=== PATIENT | male | born 1950 | race African-American/Black ===

== ENCOUNTER 2017-06-18 12:47 | Emergency (ER) | payer MEDICARE, MEDICAID ==
[~2017-06-18 12:47] MED LIST: AMLO5TAB2 PO; ATEN100T PO; GABA600T PO; LISI40TA PO; METF500T PO
[2017-06-18 13:01] VITALS: BP 134/68; PULSE 101; RESP 16; O2SAT 98
--- NOTE | 2017-06-18 14:23 | RADRPT ---
EXAM DATE/TIME: 06/18/2017 13:54 [facility] COMPARISON: CT CERVICAL SPINE W/O CONTRAST, August 22, 2013, 15:51. INDICATIONS : Patient fell, complains of neck pain RADIATION DOSE: 33.44 CTDIvol (mGy) MEDICAL HISTORY : Hypertension. SURGICAL HISTORY : Cervical fusion ENCOUNTER: Initial ACUITY: 1 day PAIN SCALE: 6/10 LOCATION: neck TECHNIQUE: Volumetric scanning of the cervical spine was performed. Multiplanar reconstructions in the sagittal, coronal and oblique axial planes were performed. Using automated exposure control and adjustment o f the mA and/or kV according to patient size, radiation dose was kept as low as reasonably achievable to obtain optimal diagnostic quality images. DICOM format image data is available electronically f or review and comparison. FINDINGS: VERTEBRAE: Normal vertebral body height. There is hardware anteriorly extending from C3-T1. There is a posterior cerclage wire around the posterior elements at C3-C5. Osseous fusion is present between the vertebra l bodies at C3-C7. There has been posterior element fusion at C3-C5. The hardware demonstrates no fin ding to indicate failure or loosening. ALIGNMENT: There is no anterolisthesis or retrolisthesis. The craniocervical junction demonstrates no abnormality. There is joint space narrowing and osteophyt es at the anterior atlantodens interval. C2-C3: There is partial osseous fusion between the vertebral bodies and posterior elements. Minimal posterio r disc osteophyte complex is present. No spinal canal stenosis or neural foraminal narrowing is appre ciated. C3-C4: There is osseous fusion. Posterior osteophytic ridging is present with small uncovertebral osteophyte s. There is mild neural foraminal narrowing bilaterally, right greater than left. No spinal canal darius nosis is appreciated. C4-C5: There is fusion between the vertebral bodies. Uncovertebral osteophytes are present mildly narrowing the spinal canal. There is no spinal canal stenosis appreciated. C5-C6: No canal stenosis or neural foraminal stenosis is identified. C6-C7: There is no spinal canal stenosis. Bilateral uncovertebral osteophytes are present causing mild to mo derate neural foraminal narrowing. C7-T1: There is facet arthrosis bilaterally no definite spinal canal stenosis or neural foraminal narrowing is visualized. Visualized paraspinous structures demonstrate no acute finding. CONCLUSION: Stable examination of the cervical spine without an acute finding identified. There is stable hardwar e and postsurgical changes extending from C3 through T1. Frederick Enrique MD on June 18, 2017 at 14:09 Board Certified Radiologist. This report was verified electronically.
--- NOTE | 2017-06-18 16:43 | PD ---
HPI Chief Complaint: Musculoskeletal Complaint Time Seen by Provider: 16:31 Travel History International Travel<30 days: No Contact w/Intl Traveler<30days: No Traveled to known affect area: No History of Present Illness HPI 67-year-old male presents to emergency department complaining of neck, low back , and elbow pain after a mechanical fall that occurred yesterday morning. States he fell forward onto his knees and elbows. He presented today because his back pain is worsening. States that his upper neck region is tender and has mild pain with range of motion. Denies numbness, tingling, or weakness of upper extremities. Lower back in the lumbar region pain increased with movement and decreases with rest. States that he has occasional sharp pain radiating to his right knee. Describes the pain as mild. Patient also planning of mild left elbow pain that increases with movement and touch to the lateral condyle. Patient denies fever, chills, IV drug use, loss of bowel or bladder function, saddle anesthesia, personal history of cancer. Patient denies significant medical history. PFSH Past Medical History Arthritis: Yes Blood Disorders: No Anxiety: No Depression: Yes Heart Rhythm Problems: No Cancer: No Cardiovascular Problems: Yes (HPT) High Cholesterol: Yes Chemotherapy: No Chest Pain: No Congestive Heart Failure: No Cerebrovascular Accident: No Diabetes: Yes Diminished Hearing: No Endocrine: Yes Genitourinary: No Headaches: No Hypertension: Yes Immune Disorder: No Musculoskeletal: Yes Neurologic: Yes (BILAT HANDS- CONTRACTURES) Psychiatric: No Reproductive: No Respiratory: No Migraines: No Myocardial Infarction: No Radiation Therapy: No Seizures: No Thyroid Disease: No Past Surgical History Abdominal Surgery: No AICD: No Arteriovenous Shunt: No Cardiac Surgery: No Ear Surgery: No Endocrine Surgery: No Eye Surgery: No Genitourinary Surgery: No Insulin Pump: No Joint Replacement: Yes (LEFT KNEE REPLACEMENT) Neurologic Surgery: Yes (CERVICAL FUSION X 2 . LAST ON ON 11/15/09) Oral Surgery: No Pacemaker: No Thoracic Surgery: No Social History Alcohol Use: No Tobacco Use: Yes (2 CIGARS A DAY) Substance Use: No Allergies-Medications (Allergen,Severity, Reaction): Coded Allergies: enoxaparin (Verified Allergy, Severe, RASH, 04/07/17) oxycodone (Verified Allergy, Severe, Rash, 04/07/17) amitriptyline (Verified Allergy, Unknown, 04/07/17) Reported Meds & Prescriptions Reported Meds & Active Scripts Active Reported Metformin (Metformin HCl) 500 Mg Tab 500 Mg PO DAILY With a meal Amlodipine (Amlodipine Besylate) 5 Mg Tab 5 Mg PO DAILY Lisinopril 40 Mg Tab 40 Mg PO DAILY Atenolol 100 Mg Tab 100 Mg PO DAILY Gabapentin 600 Mg Tab 600 Mg PO TID Review of Systems Except as stated in HPI: all other systems reviewed are Neg Physical Exam Narrative GENERAL: Well-developed well-nourished, pleasant SKIN: Focused skin assessment warm/dry. HEAD: Atraumatic. Normocephalic. EYES: Pupils equal and round. No scleral icterus. No injection or drainage. ENT: No nasal bleeding or discharge. Mucous membranes pink and moist. NECK: Trachea midline. No JVD. TTP to midline cervical spine with accompanying muscle spasms. CARDIOVASCULAR: Regular rate and rhythm. No murmur appreciated. RESPIRATORY: No accessory muscle use. Clear to auscultation. Breath sounds equal bilaterally. GASTROINTESTINAL: Abdomen soft, non-tender, nondistended. Hepatic and splenic margins not palpable. Right elbow and bilateral knees nontender to palpation, full range of motion. left elbow- TTP to lateral epicondyle, abrasion to over tender point, no crepitus or deformities noted. BACK: No CVA tenderness. No rash. Mild point tenderness on palpation of the spine, approximately L3 with accompanying muscle spasms MUSCULOSKELETAL: No obvious deformities. No clubbing. No cyanosis. No edema. NEUROLOGICAL: Awake and alert. No obvious cranial nerve deficits. Motor grossly within normal limits for patient. Normal speech. PSYCHIATRIC: Appropriate mood and affect; insight and judgment normal. Data Data Last Documented VS Vital Signs Date Time Temp Pulse Resp B/P (MAP) Pulse Ox O2 Delivery O2 Flow Rate FiO2 06/18/17 19:11 06/18/17 18:44 20 06/18/17 13:[address] Cerv Spine W/O Contrast (06/18/17 ) Elbow, Complete (4 Vws) (06/18/17 ) Ct Lumb Spine W/O Contrast (06/18/17 ) Orphenadrine Inj (Norflex Inj) (06/18/17 16:45) Ketorolac Inj (Toradol Inj) (06/18/17 16:45) Ed Discharge Order (06/18/17 18:44) [facility] Medical Decision Making Medical Screen Exam Complete: Yes Emergency Medical Condition: Yes Differential Diagnosis Neck sprain versus strain versus whiplash Left elbow contusion versus fracture versus sprain Narrative Course 67-year-old male presents to emergency department complaining of neck, low back , and elbow pain after a mechanical fall that occurred yesterday morning. States he fell forward onto his knees and elbows. He presented today because his back pain is worsening. States that his upper neck region is tender and has mild pain with range of motion. Denies numbness, tingling, or weakness of upper extremities. Lower back in the lumbar region pain increased with movement and decreases with rest. States that he has occasional sharp pain radiating to his right knee. Describes the pain as mild. Patient also planning of mild left elbow pain that increases with movement and touch to the lateral condyle. Patient denies fever, chills, IV drug use, loss of bowel or bladder function, saddle anesthesia, personal history of cancer. Patient denies significant medical history. Physical exam demonstrates mild neck pain and low back pain without evidence of red flags. TTP to elbow, pain with full range of motion. Remaining physical exam unremarkable Vital signs stable After reviewing EMR, patient has multiple medical conditions and chronic low back pain with radiculopathy. Imaging study- neck without acute process, elbow- no acute process, back- no acute process Patient has a significant risk for falls. We'll avoid pain medication, NSAIDs, and muscle relaxers. Patient agreed to take Tylenol for pain relief. Advised to follow up with his primary care physician within 2 days. Return if symptoms persist or worsen Diagnosis Primary Impression: Elbow contusion Qualified Codes: S50.02XA - Contusion of left elbow, initial encounter Additional Impressions: Cervical strain Qualified Codes: S16.1XXA - Strain of muscle, fascia and tendon at neck level , initial encounter Lumbago Qualified Codes: M54.41 - Lumbago with sciatica, right side Referrals: Primary Care Physician Additional Instructions: Perform light stretches of the lower back and legs, and alternate heat and ice packs. If you develop increased pain, weakness, fever, chills, or bowel or bladder issues, return to the ED for further treatment and evaluation. Follow up with your primary care physician in 2-3 days. May use ice and heat for your pain. Take medications as prescribed Disposition: 01 DISCHARGE HOME Condition: Stable Laurie Hernández Jun 18, 2017 16:43
[2017-06-18] MEDS ORDERED: KETOROLAC TROMETHAMINE 60 MG/2 ML (IM) VIAL IM ONE (16:45)
[2017-06-18] MEDS ORDERED: ORPHENADRINE INJ 60 MG/2 ML AMP IM ONE (16:45)
--- NOTE | 2017-06-18 17:20 | RADRPT ---
EXAM DATE/TIME: 06/18/2017 16:52 [facility] COMPARISON: No previous studies available for comparison. INDICATIONS : Left elbow pain after fall last night. MEDICAL HISTORY : None. SURGICAL HISTORY : None. ENCOUNTER: Initial ACUITY: 2 days PAIN SCORE: 10/10 LOCATION: Left posterior elbow. FINDINGS: Multiple view examination of the left elbow demonstrates no soft tissue swelling, joint effusion, or fracture. The osseous structures are in normal alignment. Bony mineralization is normal. CONCLUSION: Unremarkable examination of the left elbow. Frederick Smith MD on June 18, 2017 at 17:18 Board Certified Radiologist. This report was verified electronically.
--- NOTE | 2017-06-18 18:38 | RADRPT ---
EXAM DATE/TIME: 06/18/2017 18:07 [facility] COMPARISON: No previous studies available for comparison. INDICATIONS : Fall yesterday, lower back pain. RADIATION DOSE: 35.86 CTDIvol (mGy) MEDICAL HISTORY : Osteoporosis. Diabetes mellitus type 2. Cardiovascular diseaseHypertension. SURGICAL HISTORY : Fusion, cervical. ENCOUNTER: Initial ACUITY: 1 day PAIN SCALE: 5/10 LOCATION: lower back. TECHNIQUE: Volumetric scanning of the lumbar spine was performed. Multiplanar reconstructions in the sagittal, coronal and oblique axial planes were performed. Using automated exposure control and adjustment of the mA and/or kV according to patient size, radiation dose was kept as low as reasonably achievable t o obtain optimal diagnostic quality images. DICOM format image data is available electronically for review and comparison. FINDINGS: VERTEBRAE: Normal vertebral body height. ALIGNMENT: There is a scoliotic curvature with concavity towards the patient's right centered at L3. Grade 1 ant erolisthesis of L3 on L4. T12-L1: The thecal sac has a normal diameter. No evidence of disc bulge or protrusion. The neural foramina are patent bilaterally. L1-L2: The thecal sac has a normal diameter. No evidence of disc bulge or protrusion. The neural foramina are patent bilaterally. L2-L3: The thecal sac has a normal diameter. No evidence of disc bulge or protrusion. The neural foramina are patent bilaterally. Bony hypertrophy of the facets. L3-L4: There is disc space narrowing with a broad-based disc bulge eccentric to the right which narrows the lateral recesses bilaterally but more pronounced on the right. The disc extends into the right neural foramen impinging the exiting L3 nerve root. Moderate ligamentum flavum hypertrophy and prominent mt ny hypertrophy of the facets. Possible impingement of the left L3 nerve root within the medial portio n of the neural foramen. L4-L5: There is a central disc bulge that causes central canal stenosis and narrowing of the lateral recesse s bilaterally. Narrowing of the neural foramen bilaterally without overt impingement. Moderate ligame nt flavum hypertrophy and bony hypertrophy of the facets. L5-S1: Moderate broad-based disc bulge with vacuum disc phenomena and large anterior osteophyte. Narrowing o f the left lateral recess with displacement of the S1 nerve root. Mild narrowing of the right lateral recess without displacement. Narrowing of the neural foramina bilaterally without overt impingement. CONCLUSION: 1. No fracture or dislocation. 2. Multilevel degenerative changes including neural impingement as detailed above. Arvin Beltrán Jr., MD on June 18, 2017 at 18:32 Board Certified Radiologist. This report was verified electronically.
[2017-06-18 18:44] VITALS: RESP 20
== END 2017-06-18 19:10 | disposition home or self-care (01) ==
LOC: NEPK 12:47
DX: S50.02XA Contusion of left elbow, initial encounter (principal); S16.1XXA Strain of muscle, fascia and tendon at neck level, initial encounter; M54.41 Lumbago with sciatica, right side; W18.30XA Fall on same level, unspecified, initial encounter; M19.90 Unspecified osteoarthritis, unspecified site; I10 Essential (primary) hypertension; E11.9 Type 2 diabetes mellitus without complications; F32.9 Major depressive disorder, single episode, unspecified; Z72.0 Tobacco use
CPT/HCPCS: 72125; 72131; 73080; 96372; 99285; J1885; J2360